=== PATIENT | male | born 1985 | race Caucasian/White ===

== ENCOUNTER 2022-07-26 21:12 | Emergency (ER) | payer SELFPAY ==
[2022-07-26] MEDS ORDERED: FLUORESCEIN SOD(OPTH) 1 MG STRP ONE (21:22)
[2022-07-26] MEDS ORDERED: IBUPROFEN600 MG PO (21:34)
[2022-07-26] MEDS ORDERED: MAXITROL EYE O3.5 GM OU (21:34)
[2022-07-26 22:05] VITALS: BP 110/67; PULSE 59; RESP 18; TEMP 99.2; O2SAT 96
== END 2022-07-26 22:25 | disposition home or self-care (01) ==
LOC: FSED 21:16
DX: H16.133 Photokeratitis, bilateral (principal); W89.8XXA Exposure to other man-made visible and ultraviolet light, initial encounter; Y99.0 Civilian activity done for income or pay
CPT/HCPCS: 99282